=== PATIENT | female | born 1930 | race Caucasian/White ===

== ENCOUNTER 2021-03-11 10:44 | Emergency (ER) | payer MEDICARE, OTHER ==
[~2021-03-11] VITALS: Ht 157.5 cm; Wt 55.2 kg
--- NOTE | 2021-03-11 11:22 | ED Fall/Injury ---
General Chief Complaint: Back Problems Stated Complaint: FALL; BACK PAIN Source: patient History of Present Illness Date Seen by Provider: Mar 11, 2021 Time Seen by Provider: 10:47 Initial Comments 89-year-old female presenting with complaints of pain to her back and right ribs. She had fallen on March 08 by slipping on a throw rug. She states that she did not hit her head or lose consciousness. She did hit her right arm and has a small bruise. She was able to get back up and went on to do grocery shopping and carrying her groceries into the house. She has continued to have increasing pain every day since the fall. Her pain is primarily to the right side of her spine. She has some increased pain when she tries to take a deep breath or when she tries to lay back. She denies any fever, chills, nausea, vomiting, increased shortness of breath, dizziness, headache. She reports a history of valve problems with her heart and has a loud murmur. She was told when she was 89 and still living by [place] that she needed to have a valve replacement however she felt that she was healthy enough she did not need to proceed with that. She has recently moved here to [facility] and follows with Dr. Alvarado. She continues to be fairly active and independent. She reports taking [place] Thyroid and a low dose of blood pressure medication. Location Injury Occurred: home Occurred: other (SundayMar 08) Severity: mild (3 out of 10 if sitting still, 15 out of 10 if trying to get out of car or moving in certain positions.) Injuries/Pain Location: upper extremity (right arm), chest (right posterior chest and mid t spine) Context: slipped (slipped on throw rug) Loss of Consciousness: no loss of consciousness Modifying Factors: Worse With Movement; Improves With Pain Medication (tylenol helped her rest last night) Associated Symptoms (Fall): No Abdominal Pain, No Confusion, No Dizziness, No Headache, No Lightheadedness, No Muscle Spasms, No Nausea/Vomiting, No Neck Pain, No Ringing in Ears, No Seizures, No Slurred Speech, No Trouble Walking, No Vision Changes Allergies and Home Medications Patient Home Medication List Home Medication List Reviewed: Yes Tramadol HCl (Tramadol HCl) 50 Mg Tablet, 50 MG PO Q6H PRN for PAIN-SEVERE (8- 10) Prescribed by: SULEMA ALDRICH on 03/11/21 1236 Review of Systems Review of Systems Constitutional: No chills, No dizziness, No fever Eyes: No Symptoms Reported Ears, Nose, Mouth, Throat: no symptoms reported Respiratory: see HPI Cardiovascular: no symptoms reported Gastrointestinal: see HPI Genitourinary: No dysuria, No frequency Musculoskeletal: see HPI Skin: change in color (bruise right arm just above elbow) Psychiatric/Neurological: Denies Headache, Denies Numbness, Denies Paresthesia, Denies Weakness Past Drusntj-Ctiolx-Wcxsmw Hx Patient Social History Tobacco Use?: No Smoking Status: Never a Smoker Smokeless Tobacco Frequency: Never a User Use of E-Cig and/or Vaping [place]: Never a User Substance use?: No Alcohol Use?: No Pt feels they are or have been: No Past Medical History Respiratory: No Cardiac: Yes Hypertension, Valvular Heart Disease Endocrine: Yes Hypothyroidsim Physical Exam Vital Signs Vital Signs - First Documented 03/11/21 03/11/21 10:52 12:46 Temp 36.2 Pulse 119 Resp 18 B/P (MAP) 154/82 (106) Pulse Ox 98 O2 Delivery Room Air Capillary Refill : Height, Weight, BMI Height: '" Weight: lbs. oz. kg; BMI Method: General Appearance: WD/WN, no apparent distress Neck: non-tender, full range of motion, supple, normal inspection Cardiovascular: normal peripheral pulses, tachycardia, systolic murmur Respiratory: lungs clear, no respiratory distress, no accessory muscle use; No rales, No stridor, No wheezing; other (mild tenderness to palpation right posterior lower ribs without crepitus or area of bruising) Gastrointestinal: normal bowel sounds, non tender, soft, no pulsatile mass Rectal: deferred Back: no CVA tenderness, vertebral tenderness (mild mid thoracic spine pain without step off or crepitus) Neurologic/Psychiatric: 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, no motor/sensory deficits, alert, normal mood/affect, oriented x 3 Skin: warm/dry, ecchymosis (right arm just proximal to elbow) Jeremiah Coma Score Best Eye Response: (4) Open Spontaneously Best Verbal Response: (5) Oriented Best Motor Response: (6) Obeys Commands Elia Total: 15 Progress/Results/Core Measures Results/Orders My Orders Orders - SULEMA ALDRICH MD Ct Chest Wo (03/11/21 11:10) Ct Thoracic Spine Wo (03/11/21 11:10) Vital Signs/I&O 03/11/21 03/11/21 10:52 12:46 Temp 36.2 Pulse 119 67 Resp 18 16 B/P (MAP) 154/82 (106) 147/79 Pulse Ox 98 O2 Delivery Room Air Room Air Progress Progress Note #1: Progress Note Will perform a CT scan of the chest and thoracic spine to see if there might be a compression fracture or rib fractures. Evaluate for pleural effusion or lung contusion. Progress Note #2: Progress Note CT scan of the thoracic spine did not demonstrate any acute compression fracture. Her chest CT scan showed no acute definite rib fractures however she did have a pleural effusion on the right side., So this might be related to the trauma versus her chronic valvular disease of her heart there is difficult to say since she does not have any prior imaging for comparison. Patient was unaware of having a pleural effusion previously. This may all be related to her fall causing the pleural effusion. As she is maintaining a good oxygen saturation. it did not seem as though she required any emergent intervention for the pleural effusion. She does have some mild tachycardia but again unsure if this is chronic or if it is related to pain and the pleural effusion. Advised patient to try treating the symptoms and that she could add in tramadol. Counseled on using lidocaine patches but patient states she lives alone and has no one to help apply the patches and she is unable to reach behind her back to put the patch in place. If she is not having improved symptoms over the next several days she should be reevaluated. If she has worsening symptoms she also needs to be reevaluated. Regardless of improvement or worsening within the next 10 to 14 days she should have a repeat x-ray and evaluation with her primary care doctor to ensure that the pleural effusion was improving and resolving. Diagnostic Imaging Diagonstic Imaging: CT Plain Films/CT/US/NM/MRI: chest Comments [facility] [place], [place] NAME: CELI HALL I [facility] REC#: [id number] PT STATUS: REG ER : 1930 PHYSICIAN: SULEMA ALDRICH MD ADMIT DATE: 03/11/21/ER FS Signed Date of Exam:03/11/21 CT CHEST WO PROCEDURE: CT chest without contrast. TECHNIQUE: Multiple contiguous axial images were obtained through the chest without the use of intravenous contrast. Auto Exposure Controls were utilized during the CT exam to meet ALARA standards for radiation dose reduction. INDICATION: Fall, back pain There is bilateral apical pleural scarring. No suspicious mass or infiltrate is seen. There is a small effusion on the right layering to a depth of approximately 1 cm. There is no pneumothorax. There is cardiomegaly. There is no mediastinal mass or hemorrhage evident. There is scoliosis and degenerative changes of the thoracic spine with no acute bony abnormality seen. IMPRESSION: There is a small right-sided effusion. There is cardiomegaly. Dictated by: Dictated on workstation # [id number] Dict: 03/11/21 1136 Trans: 03/11/21 1146 CV [id number] Interpreted by: GREGG RINCON MD Electronically signed by: GREGG RINCON MD 03/11/21 1146 Reviewed: Reviewed by Wy Diagonstic Imaging: CT Plain Films/CT/US/NM/MRI: other (thoracic spine) Comments [facility] [place] [place] NAME: CELI HALL I [facility] REC#: [id number] PT STATUS: REG ER : 1930 PHYSICIAN: SULEMA ALDRICH MD ADMIT DATE: 03/11/21/ER FS Signed Date of Exam:03/11/21 CT THORACIC SPINE WO PROCEDURE: CT thoracic spine without contrast. TECHNIQUE: Multiple axial computerized tomography images were obtained from the base of the thoracic spine to the vertex without intravenous contrast. Auto Exposure Controls were utilized during the CT exam to meet ALARA standards for radiation dose reduction. INDICATION: Fall, back pain There is levoscoliosis in the lower thoracic spine. There is normal height of the thoracic vertebral bodies. There is spondylosis present. No spinal canal encroachment is seen. No fracture or other acute abnormality is seen. IMPRESSION: There is scoliosis and spondylosis with no acute abnormality evident. Dictated by: Dictated on workstation # [id number] Dict: 03/11/21 1139 Trans: 03/11/21 1147 [facility] [id number] Interpreted by: GREGG RINCON MD Electronically signed by: GREGG RINCON MD 03/11/21 1147 Reviewed: Reviewed by Me Departure Impression Primary Impression: Contusion of rib on right side Qualified Codes: S20.211A - Contusion of right front wall of thorax, initial encounter Additional Impressions: Fall at home Qualified Codes: W19.XXXA - Unspecified fall, initial encounter; Y92.009 - Unspecified place in unspecified non-institutional (private) residence as the place of occurrence of the external cause Pleural effusion on right Disposition: HOME, SELF-CARE Condition: Stable Departure-Patient Inst. Decision time for Depature: 12:31 Referrals: MIKE ALVARADO DO (PCP/Family) Primary Care Physician Patient Instructions: Blunt Chest Trauma ED, Pleural Effusion (DC), Preventing Falls ED, Rib Fracture or Bruised Rib ED Add. Discharge Instructions: Try taking the Tramadol (Ultram) for severe pain. You may continue to use Acetaminophen and Ibuprofen to help with pain as well. You could consider using Lidocaine patches to the area on your back to help with pain as well. These are sold over the counter under a couple of different brand names and store names. [employer] is one of the more well known brand names. Check back with Dr. Alvarado in the clinic for continued pain. Especially if you are not improving be seen sooner otherwise after 10 to 14 days you should have a repeat chest x-ray to ensure that the pleural effusion is resolving. All discharge instructions reviewed with patient and/or family. Voiced underst anding. Scripts Tramadol HCl (Tramadol HCl) 50 Mg Tablet 50 MG PO Q6H PRN for PAIN-SEVERE (8-10) for 5 Days, #20 TAB 0 Refills Prov: SULEMA ALDRICH MD 03/11/21 SULEMA ALDRICH MD Mar 11, 2021 11:22
--- NOTE | 2021-03-11 11:41 | Diagnostic Imaging Report ---
PROCEDURE: CT chest without contrast. TECHNIQUE: Multiple contiguous axial images were obtained through the chest without the use of intravenous contrast. Auto Exposure Controls were utilized during the CT exam to meet ALARA standards for radiation dose reduction. INDICATION: Fall, back pain There is bilateral apical pleural scarring. No suspicious mass or infiltrate is seen. There is a small effusion on the right layering to a depth of approximately 1 cm. There is no pneumothorax. There is cardiomegaly. There is no mediastinal mass or hemorrhage evident. There is scoliosis and degenerative changes of the thoracic spine with no acute bony abnormality seen. IMPRESSION: There is a small right-sided effusion. There is cardiomegaly. Dictated by: Dictated on workstation # [id number]
--- NOTE | 2021-03-11 11:41 | Diagnostic Imaging Report ---
PROCEDURE: CT thoracic spine without contrast. TECHNIQUE: Multiple axial computerized tomography images were obtained from the base of the thoracic spine to the vertex without intravenous contrast. Auto Exposure Controls were utilized during the CT exam to meet ALARA standards for radiation dose reduction. INDICATION: Fall, back pain There is levoscoliosis in the lower thoracic spine. There is normal height of the thoracic vertebral bodies. There is spondylosis present. No spinal canal encroachment is seen. No fracture or other acute abnormality is seen. IMPRESSION: There is scoliosis and spondylosis with no acute abnormality evident. Dictated by: Dictated on workstation # [id number]
[2021-03-11] MEDS ORDERED: TRM50T PO (12:34)
[2021-03-11 12:46] VITALS: BP 147/79
== END 2021-03-11 12:46 | disposition home or self-care (01) ==
LOC: ER FS 10:47
DX: S20.221A Contusion of right back wall of thorax, initial encounter (principal); S40.021A Contusion of right upper arm, initial encounter; J90 Pleural effusion, not elsewhere classified; R00.0 Tachycardia, unspecified; I10 Essential (primary) hypertension; W22.8XXA Striking against or struck by other objects, initial encounter; Y92.009 Unspecified place in unspecified non-institutional (private) residence as the place of occurrence of the external cause
CPT/HCPCS: 71250; 72128

== ENCOUNTER → 2021-03-24 | Outpatient (CLI) | payer MEDICARE ==
[~2021-03-24] MED LIST: TRM50T PO
--- NOTE | 2021-03-24 13:49 | Diagnostic Imaging Report ---
INDICATION: Right-sided pleural effusion, followup. TIME OF EXAM: 1:38 PM Correlation is made with prior CT chest from 03/11/2021. Heart is enlarged but stable. No significant pleural effusion is identified on this chest radiograph. Lungs are clear. There is no pneumothorax. Right-sided 7th rib fracture is again noted. IMPRESSION: Resolution of previous right pleural effusion since prior CT from 03/11/2021. Dictated by: Dictated on workstation # [id number]
== END ==
LOC: RAD FS 13:28
PROVIDERS: ATTEND Emergency Medicine
DX: J91.8 Pleural effusion in other conditions classified elsewhere (principal)
CPT/HCPCS: 71046